=== PATIENT | female | born 1995 | race Caucasian/White ===

== ENCOUNTER 2020-02-14 19:08 | Inpatient (IN) | payer MEDICAID, SELFPAY ==
[2020-02-14] VITALS (16 sets, daily range): BP systolic 0–148; BP diastolic 0–81; PULSE 69–107; RESP 18; TEMP 36.9–37; BMI 27.1
[2020-02-14] MEDS: miSOPROStol 100 mcg tablet 25 MCG VAGINAL (20:48)
[2020-02-14 21:46] LABS: Basophils % 0.2 %; Eosinophils # 0.1 10^3/uL (0.0-0.8); Eosinophils % 0.7 %; Hemoglobin 10.1 g/dL (11.5-15.3); Lymphocytes # 1.8 10^3/uL (0.8-4.8); Lymphocytes % 15.9 %; Mean Corpuscular HGB Conc 30.6 g/dL (30.0-36.0); Mean Corpuscular Hemoglobin 26.4 pg (28.0-34.0); Mean Corpuscular Volume 86.4 fL (81-99); Mean Platelet Volume 13.1 fL (7.4-10.4); Monocytes # 0.7 10^3/uL (0.2-0.9); Monocytes % 6.2 %; Neutrophils # 8.64 10^3/uL (1.8-7.7); Neutrophils % 75.9 %; Nucleated Red Blood Cells % 0 %; Platelet Count 259 10^3/cmm (130-400); Red Blood Count 3.82 10^6/uL (4.1-5.3); Red Cell Distribution Width 15.1 % (12.1-15.1); White Blood Count 11.4 10^3/uL (4.0-10.0)
[2020-02-14 22:17] LABS: Slide Review Slide Review Perform
[2020-02-14] MEDS: morphine 4 mg/mL SDV 1 mL 8 MG IM (23:12)
[2020-02-14] MEDS: promethazine 25 mg/mL SDV 1 mL IM (23:14)
[2020-02-15] VITALS (148 sets, daily range): BP systolic 0–170; BP diastolic 0–81; PULSE 63–118; RESP 16–20; TEMP 36.5–37.6; O2SAT 96–98
[2020-02-15] MEDS: miSOPROStol 100 mcg tablet 25 MCG VAGINAL ×2 (01:30→05:31)
[2020-02-15] MEDS: fentaNYL 50 mcg/mL INJ 2mL IVP (07:36)
[2020-02-15] MEDS: lactated ringers 1,000 ML 999 ML IV (09:10)
[2020-02-15] MEDS: dextrose 5%-lactated ringers 1,000 ML 125 ML IV ×2 (10:04→17:40)
--- NOTE | 2020-02-15 10:35 | ANES.PREANE2 ---
Pre-Anesthetic Assessment Pre-Anesthetic Assessment: Height/Weight: Height 1.63 m Weight 71.668 kg Temp Pulse Resp BP Pulse Ox 97.7 F 102 H 20 H 101/70 97 02/15/20 09:00 02/15/20 10:31 02/15/20 09:00 02/15/20 10:31 02/15/20 09:57 Preop Diagnosis: IUP Familial anesthetic complications: non Social: Social History: Tobacco Exam: Pre-Anes Outpt Exam: alert, oriented x 3, clear to auscultation bilaterally and regular rate & rhythm Airway: Cervical ROM: WNL MP: 3 Dentition: Chipped Anesthetic Plan: ASA status: 2 Anesthesia: Regional (specify below) Risk of > 500 ml blood loss (7ml/kg in children): Yes, adequate IV access and fluids planned Meds/Allergies Current Medications: Current Medications Generic Name Dose Route Start Last Admin Trade Name Freq PRN Reason Stop Dose Admin Fentanyl 25 - 100 mcg 02/14/20 20:00 02/15/20 07:36 Sublimaze IVP 50 mcg Q1H PRN Administration SEVERE PAIN Dextrose/Lactated Ringer's 1,000 mls @ 125 m ls/hr 02/14/20 20:00 02/15/20 10:04 Dextrose 5%-Lact ated Ringers IV 125 mls/hr .Q8H PRN Administration per label comment s Lactated Ringer's 1,000 mls @ 999 m ls/hr 02/15/20 08:22 02/15/20 09:10 Lactated Ringers IV 999 mls/hr .Q1H1M PRN Administration ANESTHESIA Ropivacaine 200 mg in 100 mls @ 13 mls/hr 02/15/20 08:30 02/15/20 09:10 Naropin Premix EPIDURAL 13 mls/hr .Q7H42M RILEY Administration PFSH Anesthesia PFSH: Social History (Updated 02/14/20 @ 21:43 by Christine Colón RN) Smoking and tobacco status: current every day smoker Female Reproductive History: : 2 Data Anesthesia CBC & Chem 7: 02/14/20 20:30 Other Labs: Laboratory Results - last 48 hr 02/14/20 20:30 WBC 11.4 H RBC 3.82 L Hgb 10.1 L Hct 33.0 L MCV 86.4 MCH 26.4 L MCHC 30.6 RDW 15.1 Plt Count 259 MPV 13.1 H Neut % (Auto) 75.9 Lymph % (Auto) 15.9 [place] % (Auto) 6.2 Eos % (Auto) 0.7 Baso % (Auto) 0.2 Neut # (Auto) 8.64 H Lymph # (Auto) 1.8 [place] # (Auto) 0.7 Eos # (Auto) 0.1 Baso # (Auto) 0.0 Nucleated RBC % (auto) 0 Nucleated RBCs # 0.0 Cardiac Studies: No Data to Display
--- NOTE | 2020-02-15 10:36 | ANES.PROC ---
Anesthesia Procedures Procedure/Date: 02/15/20 Epidural: Time Out Performed: Yes Consents Signed: Procedure Consent Consent: requested by attending/covering physician, from patient, risks and benefits reviewed and patient agrees to proceed Lumbar Level: L3-L4 Epidural position: sitting Epidural procedure: sterile prep of area, 1% lidocaine to numb the area, 18 g needle, negative for paresthesia passed, neg for paresthesia, test dose given, 1.5% xylocaine 1:200k epi (3 cc), placed PCEA, no systemic response, sterile dressing applied, L.U.D. no apparent complications and 0.2% Ropiavacaine @ mls/hr (13)
[2020-02-15] MEDS: ondansetron 2 mg/ML SDV 2 mL 4 MG IVP (16:47)
[2020-02-15] MEDS: oxytocin 30 UNIT/500 ML BAG 999 UNIT IV (17:41)
[2020-02-15] MEDS: oxytocin 30 UNIT/500 ML BAG 4 UNIT IV (18:43)
--- NOTE | 2020-02-15 19:56 | PC.NURSE ---
1652 DR. BENOIT IN ROOM AND DID VE AND HAD PT PUSH AND OK'D FOR US TO START PUSHING. LEFT ROOM TO GET THINGS FOR DELIVERY AND HAD EMERGENCY IN ANOTHER ROOM SO PUSHING NOT STARTED UNTIL 1737. PT'S CONTRACTIONS NOT VERY STRONG AND PT NOT PUSHING WELL AND STRIP WAS LOOKING OK 1800 CHOOSE TO STOP PUSHING AND LET PT LABOR DOWN FOR AWHILE. NO PROGRESS WITH PUSHING AND CONTRACTIONS SPACED OUT AND NOT VERY STRONG. NOTIFIED DR. BENOIT WHO IS HERE ON FLOOR.
--- NOTE | 2020-02-15 22:14 | P.PCNOB_ITS ---
Delivery Note: Date of delivery: February 15, 2020 Pre-Delivery Course: The patient is an otherwise healthy 24-year-old 2 para 0-0-1-0 with an estimated stational age of 40 weeks who presented for induction due to postdates. Patient presented the evening prior to delivery. She received Cytotec 25 mcg per vagina x3. An amniotomy was performed. She also received Pitocin augmentation. She progressed to complete without difficulty. She pushed for about 1/2-hour but was found not to be making good progress, so would let her labor down for another hour before she began pushing again. Delivery: DELIVERY: The patient progressed to complete without difficulty. She delivered a female with a weight of 7 pounds 9 ounces with Apgars of 3, 9. The baby was delivered from the YURI position. After delivery of the head, I was unable to easily deliver the anterior shoulder. Nacho, and suprapubic pressure were performed. I performed a wood screw maneuver without success. I displaced to the posterior shoulder by pushing it. The baby was then completely delivered and placed on the mother's abdomen. The cord was then clamped and cut. There was no nuchal cord. There was no meconium. The placenta and 3 vessel cord were delivered intact shortly thereafter. The perineum and vaginal vault were carefully examined. No lacerations were noted. The baby did require initial resuscitation, but the baby and mother are now in stable condition. Blood loss was 150 mL A&P Assessment and plan (1) 40 weeks gestation of : Status: Acute (2) Vaginal delivery: Status: Acute (3) Shoulder dystocia during labor and delivery: Status: Acute Coding Level of Care Code Acute Booking Supervisor for Chg Fwd Diagnoses 40 weeks gestation of Z3A.40 Vaginal delivery O80 Shoulder dystocia during labor and delivery O66.0
[2020-02-16] VITALS (8 sets, daily range): BP systolic 0–123; BP diastolic 0–76; PULSE 64–87; RESP 16–18; TEMP 36.4–37.1; O2SAT 97–98
[2020-02-16] MEDS: HYDROcodone-acetaminophen 5-325 mg Tablet PO ×3 (03:13→15:45)
--- NOTE | 2020-02-16 07:40 | PM.OBGYPN ---
REGIONAL SALES REPRESENTATIVE Subjective Subjective: Interval history: The patient is doing well. Her pain is adequately controlled. Her bleeding has been within normal limits. She did not breast-feed much last night, but is willing to talk to the telecommunications specialist today to see if she can breast-feed more. Vitals/I&O/Wt Last Vital Signs Temp 97.6 F 02/16/20 05:45 Pulse 64 02/16/20 05:45 Resp 16 02/16/20 05:45 BP 119/66 02/16/20 05:45 Pulse Ox 97 02/16/20 05:45 02/15/20 02/16/20 02/16/20 22:59 06:59 14:59 Intake Total 518.717 / 360.497 4817.283 / 1700.000 Output Total 300 / 300 600 / 900 Balance 218.717 / 218.717 581.283 / 800.000 Weight last 48 hrs Weight 158 lb 0.014 oz Physical Exam Narrative: EXAM NARRATIVE: The patient is alert. She appears comfortable. Her heart has a regular rate and rhythm with no murmurs appreciated. Lungs are clear to auscultation bilaterally. Her fundus is firm and below the umbilicus. Urinary Catheter Management^: Sinha: Cath Placed During This Visit: yes, but has since been removed by the nurse Reason for Continuing Indwelling Catheter: Accurate Measurement of Urinary Output in Critically Ill Patients Urinary Catheter Date of Insertion: 02/15/20 Urinary Catheter Time of Insertion: 09:50 Date Urinary Catheter Removed: 02/15/20 Time Urinary Catheter Discontinued: 17:40 Data : 02/14/20 20:30 A&P Assessment and plan (1) Status post vaginal delivery: Patient appears to be doing very well. Anticipate routine care. I expect she will be discharged home tomorrow morning. Status: Acute (2) 40 weeks gestation of : Status: Acute (3) Shoulder dystocia during labor and delivery: Status: Acute Attestations Medical Necessity Statement*: Routine care Coding Level of Care Code Acute Corporate Legal Secretary for [employer] Maria Del Carmen Diagnoses Status post vaginal delivery 40 weeks gestation of Z3A.40 Shoulder dystocia during labor and delivery O66.0
[2020-02-16] MEDS: prenatal vitamin Capsule 1 CAP PO (08:36)
--- NOTE | 2020-02-16 10:01 | ANE.PACU2 ---
Inpatient post-anesthesia follow up: Airway intact: Yes Vital signs: Temperature 97.6 F Pulse Rate 64 Respiratory Rate 16 Blood Pressure 119/66 Pulse Oximetry 97 Oxygen Delivery Me thod Room Air Oxygen Flow Rate Fraction of Inspir ed Oxygen Hydration adequate: Yes Nausea and vomiting: No Pain level: 7 Mental status: Baseline Additional Comments: NO weakness, numbness, headaches, or signs of infection at neuraxial site
[2020-02-16 12:39] LABS: Hematocrit 35.9 % (37.0-47.0); Hemoglobin 10.6 g/dL (11.5-15.3); Mean Corpuscular HGB Conc 29.5 g/dL (30.0-36.0); Mean Corpuscular Hemoglobin 26.2 pg (28.0-34.0); Mean Corpuscular Volume 88.9 fL (81-99); Mean Platelet Volume 12.8 fL (7.4-10.4); Platelet Count 258 10^3/cmm (130-400); Red Blood Count 4.04 10^6/uL (4.1-5.3); Red Cell Distribution Width 15.2 % (12.1-15.1); White Blood Count 17.7 10^3/uL (4.0-10.0)
[2020-02-17 04:34] VITALS: BP 112/52; PULSE 70; RESP 16; TEMP 36.8; O2SAT 99
--- NOTE | 2020-02-17 07:28 | PM.OBGYDC ---
Discharge Providers RAIL SWITCHMAN Date of Admission: 02/14/20 19:08 Date of Discharge: 02/17/20 Attending Provider at Admission: Olaf Diaz MD Attending Provider at Discharge: Olaf Diaz MD Diagnoses at Discharge Discharge Diagnosis (1) Status post vaginal delivery: Status: Acute (2) 40 weeks gestation of : Status: Acute (3) Shoulder dystocia during labor and delivery: Status: Acute Reason for Visit Reason for Visit: iup Hospital Course Hospital Course: The patient presented to the hospital for induction due to postdates. She is given Cytotec 25 mcg per vagina x3. An amniotomy occurred. An epidural was placed. Pitocin augmentation was initiated. She progressed to complete. Shoulder dystocia occurred for about 3 minutes. Her course has been unremarkable. Her bleeding has been within normal limits her pain is been well controlled. She has bottle-fed her infant. Information Peripartum Data: Delivery Method: Vaginal Physical Exam Narrative: EXAM NARRATIVE: The patient is alert. She appears comfortable. Her heart has a regular rate and rhythm with no murmurs appreciated. Lungs are clear to auscultation bilaterally. Her fundus is firm and below the umbilicus. Urinary Catheter Management^: Sinha: Cath Placed During This Visit: yes, but has since been removed by the nurse Reason for Continuing Indwelling Catheter: Accurate Measurement of Urinary Output in Critically Ill Patients Urinary Catheter Date of Insertion: 02/15/20 Urinary Catheter Time of Insertion: 09:50 Date Urinary Catheter Removed: 02/15/20 Time Urinary Catheter Discontinued: 17:40 Discharge Data Data Completed and Pending: Labs from last 24 hours 02/16/20 11:00 WBC 17.7 H RBC 4.04 L Hgb 10.6 L Hct 35.9 L MCV 88.9 MCH 26.2 L MCHC 29.5 L RDW 15.2 H Plt Count 258 MPV 12.8 H Vitals: Last Vital Signs Temp 98.2 F 02/17/20 04:34 Pulse 70 02/17/20 04:34 Resp 16 02/17/20 04:34 BP 112/52 02/17/20 04:34 Pulse Ox 99 02/17/20 04:34 Discharge Plan Discharge Patient Disposition: Home Condition: Stable Prescriptions: New ibuprofen 800 mg Tablet 800 mg PO TID Qty: 30 RF: 0 -U 106.5-1 mg Capsule 1 cap PO DAILY Qty: 90 RF: 2 Discharge Orders: Discharge Order (Routine); Ordered 02/17/20 Ordered By: Olaf Diaz Referrals: Olaf Diaz MD [Physician] - 6 Weeks Discharge Diet: Usual diet Discharge Activity: Limit activity as instructed Discharge Attestations RAIL SWITCHMAN Time Spent in Discharge Care*: less than 30 min Coding Level of Care Code Acute Chemical Laboratory Technician for Chg Fwd Diagnoses Status post vaginal delivery 40 weeks gestation of Z3A.40 Shoulder dystocia during labor and delivery O66.0
[2020-02-17] MEDS: prenatal vitamin Capsule 1 CAP PO (08:55)
--- NOTE | 2020-02-17 10:30 | PC.NURSE ---
MMR Patient refused vaccine. Discussed the reason for needing the MMR vaccine with her Rubella non-immune, patient requested to not receive vaccine and can get it at a later time. This nurse discussed options of getting vaccine at health department or clinic as an outpatient.
[2020-02-17 12:32] VITALS: BP 114/71; PULSE 81; RESP 18; TEMP 36.5; O2SAT 97
== END 2020-02-17 11:30 | disposition home or self-care (01) | DRG 807 ==
PROVIDERS: Admitting Provider Family Medicine; Visit Provider Family Medicine
DX: O48.0 Post-term pregnancy (principal); Z37.0 Single live birth; Z3A.40 40 weeks gestation of pregnancy; O66.0 Obstructed labor due to shoulder dystocia
CPT/HCPCS: 12345; 36415; 51702; 59025; 59409; 85025; 85027; 96372; 96374; 96375; 99211; J2270; J2405; J2550; J2795; J3010

== ENCOUNTER → 2020-04-10 09:28 | Outpatient (BNVA) | payer MEDICAID, SELFPAY | PROVIDERS: Visit Provider Nurse Practitioner | DX: M25.532 Pain in left wrist (principal) | CPT/HCPCS: 72040; 73110 ==

== ENCOUNTER → 2020-04-11 16:11 | Outpatient (BNVA) | payer MEDICAID, SELFPAY | PROVIDERS: Visit Provider Nurse Practitioner | DX: M25.50 Pain in unspecified joint (principal) | CPT/HCPCS: 80053; 85025; 85651; 86140 ==

== ENCOUNTER → 2020-10-02 09:47 | Outpatient (BNVA) | payer MEDICAID, SELFPAY | PROVIDERS: Visit Provider Psychiatry & Neurology Neurology | DX: M25.539 Pain in unspecified wrist (principal); R20.2 Paresthesia of skin; M54.2 Cervicalgia; F17.210 Nicotine dependence, cigarettes, uncomplicated | CPT/HCPCS: 95886; 95912 ==

== ENCOUNTER 2021-02-05 06:21 | Emergency (ER) | payer MEDICAID, SELFPAY ==
[2021-02-05 06:28] VITALS: BP 112/70; PULSE 108; RESP 18; TEMP 36.7; O2SAT 99; BMI 23.6
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
[2021-02-05 06:50] VITALS: BP 118/64; PULSE 84; RESP 18; O2SAT 96
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
[2021-02-05 07:09] VITALS: BP 106/67; PULSE 92; RESP 18; O2SAT 98
[2021-02-05 07:26] LABS: Basophils % 0.3 %; Eosinophils # 0.1 10^3/uL (0.0-0.8); Eosinophils % 0.8 %; Hematocrit 39.6 % (37.0-47.0); Hemoglobin 12.6 g/dL (11.5-15.3); Lymphocytes # 2.2 10^3/uL (0.8-4.8); Lymphocytes % 16.7 %; Mean Corpuscular HGB Conc 31.8 g/dL (30.0-36.0); Mean Corpuscular Hemoglobin 30.4 pg (28.0-34.0); Mean Corpuscular Volume 95.7 fl (81-99); Mean Platelet Volume 12.1 fL (7.4-10.4); Monocytes # 0.8 10^3/uL (0.2-0.9); Monocytes % 6.2 %; Neutrophils # 9.98 10^3/uL (1.8-7.7); Neutrophils % 75.2 %; Nucleated Red Blood Cells % 0 %; Platelet Count 217 10^3/cmm (130-400); Red Blood Count 4.14 10^6/uL (4.1-5.3); Red Cell Distribution Width 13.9 % (12.1-15.1); White Blood Count 13.3 10^3/uL (4.0-10.0)
[2021-02-05 07:27] LABS: Add Urine Culture? No; Add Urine Microscopic? YES; Bacteria Urine 1+ /hpf; Bilirubin Urine Neg (Negative); Blood Urine Neg (Negative); Glucose Urine UA Norm (Normal); Ketones Urine Negative (Negative); Leukocyte Esterase Urine Negative (Negative); Mucus Urine TRACE /hpf; Nitrate Urine Negative (Negative); Protein Urine Neg (Negative); Specific Gravity, Urine 1.015 (1.005-1.030); Squamous Epithelial Cell Urine 25-40 /hpf (0-5); Urine Appearance Cloudy (CLEAR); Urine Color Yellow (Yellow); Urobilinogen Urine Norm (Negative); WBC Urine RARE /hpf (0-5); pH Urine 6.5 (5-7)
[2021-02-05 07:35] LABS: Chloride 105 mmol/L (98-107); Potassium 4.1 mmol/L (3.5-5.1); Sodium 137 mmol/L (136-145)
[2021-02-05 07:50] LABS: Alanine Aminotransferase 10 U/L (0-33); Alkaline Phosphatase 38 IU/L (35-105); Anion Gap 11.1 (5-19); Aspartate Amino Transferase 26 U/L (0-32); Blood Urea Nitrogen 4 mg/dL (6-20); Carbon Dioxide 25 mmol/L (22-29); Globulin 2.8 g/dL (1.3-4.6); Glomerular Filtration Rate 194.5 mL/min (90-130); Glucose 92 mg/dL (65-115); Osmolality Calculated 281 mOsm/kg (285-295); Total Bilirubin 0.2 mg/dL (0.15-1.2); Total Protein 6.2 g/dL (6.6-8.7)
[2021-02-05 07:56] VITALS: BP 115/54; PULSE 83; RESP 16; O2SAT 98
[2021-02-05 07:58] VITALS: BP 115/54; PULSE 84; RESP 16; O2SAT 99
[2021-02-05 08:00] LABS: Albumin Level 3.4 g/dL (3.5-5.2); Calcium 8.3 mg/dL (8.5-10.5)
== END 2021-02-05 07:58 | disposition home or self-care (01) ==
PROVIDERS: Emergency Provider Family Medicine; PCP Family Medicine
DX: Z04.1 Encounter for examination and observation following transport accident (principal); Z3A.20 20 weeks gestation of pregnancy; O99.332 Smoking (tobacco) complicating pregnancy, second trimester; F17.210 Nicotine dependence, cigarettes, uncomplicated; V89.2XXA Person injured in unspecified motor-vehicle accident, traffic, initial encounter
CPT/HCPCS: 76815; 80053; 81001; 85025; 99283

== ENCOUNTER 2021-05-08 16:27 | Inpatient (IN) | payer MEDICAID, SELFPAY ==
[2021-05-08] MEDS: oxytocin 30 UNIT/500 ML BAG 999 UNIT IV (16:22)
[2021-05-08] MEDS: lactated ringers 1,000 ML 999 ML IV (16:22)
[2021-05-08 16:40] VITALS: RESP 16; TEMP 36.7
--- NOTE | 2021-05-08 16:40 | PM.OPHPUD ---
Labor & Delivery H&P Update Date of Procedure: May 08, 2021 Date H&P Performed: 05/05/21 H&P update information: I have reviewed H&P completed within last 30 days and Changes to prior documentation as noted here (The patient has having delivered her baby in the ambulance outside hospital) Admission Diagnosis: Preop diagnosis: IUP Planned procedure: The patient already had a precipitous vaginal delivery Related Problem List Diagnoses (1) 36 weeks gestation of : (2) Precipitous delivery:
--- NOTE | 2021-05-08 16:49 | P.PCNOB_ITS ---
Delivery Note: Date of delivery: May 08, 2021 Pre-delivery diagnoses: 25-year-old 2 para 1-0-0-1 at 36 weeks estimated gestational age having contractions Procedure: Precipitous vaginal delivery in the ambulance Op report anesthesia: None Delivering Physician: No physician was present during delivery of the baby. Estimated blood loss (mL): 300 Pre-Delivery Course: The patient thought she lost her mucous plug earlier today. She then began having occasional contractions and cramps. Then quickly progressed to painful contractions, and when she was preparing to come to the hospital, she had to stop in the parking lot and called the ambulance. Shortly after the eminence arrived, she delivered her baby without difficulty. There is a question about shoulder dystocia. The baby did well after initially being somewhat stunned. Baby had Apgars of 4 and 8 according to the ambulance personnel. The baby and mother were then brought to the hospital for further evaluation and treatment. Delivery: Please see above note. The baby had a weight of 6 pounds 3 ounces. Apgars were 4 and 8. There was no report of a nuchal cord. I examined the mother's vaginal vault . No lacerations were noted. There was a fair amount of blood on the gurney which she was brought in. There was minimal bleeding during my examination. Post-Delivery Status: Good History History Other History: The patient had an unremarkable . Her labs were notable for having the blood type a positive. Her GBS status is unknown due to her gestational age. Her drug screen was notable for being positive for opiates. She is rubella nonimmune. Glucose screen was negative. The remainder of her labs are within normal limits A&P Assessment and plan (1) 36 weeks gestation of : I anticipate routine care. Status: Acute (2) Precipitous delivery: Status: Acute Coding Level of Care Code Acute Investigative Assistant for Chg Fwd Diagnoses 36 weeks gestation of Z3A.36 Precipitous delivery O62.3
[2021-05-08 17:01] VITALS: BMI 25.7
[2021-05-08 17:11] LABS: Basophils # 0.1 10^3/uL (0.0-0.1); Basophils % 0.3 %; Eosinophils % 0.1 %; Hematocrit 31.7 % (37.0-47.0); Hemoglobin 9.7 g/dL (11.5-15.3); Lymphocytes # 1.3 10^3/uL (0.8-4.8); Lymphocytes % 7.6 %; Mean Corpuscular HGB Conc 30.6 g/dL (30.0-36.0); Mean Corpuscular Hemoglobin 25.7 pg (28.0-34.0); Mean Corpuscular Volume 83.9 fl (81-99); Mean Platelet Volume 12.1 fL (7.4-10.4); Monocytes # 1.1 10^3/uL (0.2-0.9); Monocytes % 6.2 %; Neutrophils # 14.84 10^3/uL (1.8-7.7); Neutrophils % 85.1 %; Nucleated Red Blood Cells % 0 %; Platelet Count 243 10^3/cmm (130-400); Red Blood Count 3.78 10^6/uL (4.1-5.3); Red Cell Distribution Width 14.1 % (12.1-15.1); White Blood Count 17.5 10^3/uL (4.0-10.0)
--- NOTE | 2021-05-08 18:34 | PC.NURSE ---
Delivery Summary Mother reports she lost mucous plug this morning but was not having any pain. Started having pain around 3pm and decided to come to hospital. Dropped her other child off with grandparents and then reports pain was strong so significant other called the ambulance. Ambulance arrived and put mom in ambulance and mother reports feeling pressure and baby was . Baby was delivered in the ambulance by EMS @1528. EMS reports it was a difficult delivery and the shoulders were stuck for a moment but unsure of time frame. EMS also reports some resuscitative measures were performed on baby and baby received oxygen for a period of time but issues resolved quickly and apgars were 4 and 8. EMS also reports a nuchal cord x1. Placenta delivered at 1540. EMS arrived to the hospital at 1617 with mom and baby. Baby was in mom's arms but not skin to skin. Baby was taken to warmer and examined by Dr. Ramesh. Accucheck obtained and noted to be 68. Placenta was removed from mom's lap and placed in sterile container and cord blood was obtained. Dr. Diaz to room shortly after and also examined baby and mom. Baby was returned skin to skin with mom.
[2021-05-08 18:42] VITALS: BP 116/82; PULSE 116; RESP 16; TEMP 36.8; O2SAT 99
[2021-05-08] MEDS: docusate sodium 100 mg Capsule PO (18:42)
[2021-05-08 19:05] LABS: Amphetamines Screen Urine Positive (Negative); Barbiturates Screen Urine Negative (Negative); Benzodiazepines Screen Urine Negative (Negative); Cocaine Screen Urine Negative (Negative); Opiate Screen Urine Negative (Negative); PCP Screen Urine Negative (Negative); THC Screen Urine Negative (Negative)
[2021-05-08 20:05] VITALS: BP 129/75; PULSE 113; RESP 17
[2021-05-08] MEDS: benzocaine-menthol 78 gm Canister 1 SPRAY TOPICAL (20:51)
[2021-05-08] MEDS: ibuprofen 800 mg tablet PO (20:52)
[2021-05-08 21:36] VITALS: BP 127/69; PULSE 102; RESP 15
[2021-05-09 03:35] VITALS: BP 104/56; PULSE 78; RESP 16; TEMP 36.5
[2021-05-09 03:47] LABS: Hematocrit 28.5 % (37.0-47.0); Hemoglobin 8.8 g/dL (11.5-15.3); Mean Corpuscular HGB Conc 30.9 g/dL (30.0-36.0); Mean Corpuscular Hemoglobin 25.7 pg (28.0-34.0); Mean Corpuscular Volume 83.3 fl (81-99); Mean Platelet Volume 11.8 fL (7.4-10.4); Platelet Count 214 10^3/cmm (130-400); Red Blood Count 3.42 10^6/uL (4.1-5.3); Red Cell Distribution Width 14.4 % (12.1-15.1); White Blood Count 12.2 10^3/uL (4.0-10.0)
[2021-05-09 08:00] VITALS: BP 113/65; PULSE 75; RESP 17
--- NOTE | 2021-05-09 08:01 | PC.NURSE ---
Note This mom is hoping to breastfeed. Baby is level II care in the nursery at this time. Discussed hand expression with mom and she reports knowing how to express. Encouraged her to express 8 times in 24 hours for at least 10 to 15 min per breast. Provided medicine cup containers to start collecting in. She may have someone bring her breastpump.
[2021-05-09] MEDS: ibuprofen 800 mg tablet PO ×2 (09:52→14:50)
[2021-05-09] MEDS: nicotine 21 mg Patch 1 PATCH TRANSDERMA (09:52)
[2021-05-09] MEDS: prenatal vitamin Capsule 1 CAP PO (09:52)
[2021-05-09] MEDS: docusate sodium 100 mg Capsule PO (09:52)
[2021-05-09 10:30] VITALS: BP 105/74; PULSE 70; RESP 16; TEMP 36.7
--- NOTE | 2021-05-09 14:03 | PM.OBGYDC ---
Discharge Providers PUBLIC ADDRESS TECHNICIAN Date of Admission: 05/08/21 16:27 Date of Discharge: 05/21/21 Attending Provider at Admission: Olaf Diaz MD Attending Provider at Discharge: Olaf Diaz MD Primary Care Provider: Olaf Diaz MD Diagnoses at Discharge Discharge Diagnosis (1) 36 weeks gestation of : Status: Resolved (2) Precipitous delivery: Status: Resolved (3) Abnormal drug screen: Status: Acute Reason for Visit Reason for Visit: Home Delivery Hospital Course Hospital Course The patient presented to the hospital status post spontaneous vaginal delivery in the ambulance about 1/2-hour prior to arrival to hospital. The delivery was unremarkable. After arrival to hospital, a drug screen was performed which found the patient to be positive for methamphetamines. DFS was contacted. As result of their evaluation, they elected to place the infant in another home for the time being. The mother was very cooperative. Her hospital stay was completely unremarkable otherwise. Physical Exam Narrative: EXAM NARRATIVE: The patient is alert. She appears comfortable. Her heart has a regular rate and rhythm with no murmurs appreciated. Lungs are clear to auscultation bilaterally. Her fundus is firm and below the umbilicus. History History Other History: The patient had an unremarkable . Her labs were notable for having the blood type a positive. Her GBS status is unknown due to her gestational age. Her drug screen was notable for being positive for opiates. She is rubella nonimmune. Glucose screen was negative. The remainder of her labs are within normal limits Discharge Data Data Completed and Pending: Labs from last 24 hours 05/09/21 05/08/21 05/08/21 03:40 17:44 16:55 WBC 12.2 H 17.5 H RBC 3.42 L 3.78 L Hgb 8.8 L 9.7 L Hct 28.5 L 31.7 L MCV 83.3 83.9 MCH 25.7 L 25.7 L MCHC 30.9 30.6 RDW 14.4 14.1 Plt Count 214 243 MPV 11.8 H 12.1 H Neut % (Auto) 85.1 Lymph % (Auto) 7.6 [place] % (Auto) 6.2 Eos % (Auto) 0.1 Baso % (Auto) 0.3 Neut # (Auto) 14.84 H Lymph # (Auto) 1.3 [place] # (Auto) 1.1 H Eos # (Auto) 0.0 Baso # (Auto) 0.1 Nucleated RBC % (a uto) 0 Nucleated RBCs # 0.0 Urine Opiates Scre en Negative Ur Barbiturates Sc reen Negative Ur Phencyclidine S crn Negative Ur Amphetamines Sc reen Positive H U Benzodiazepines Scrn Negative Urine Cocaine Scre en Negative U Marijuana (THC) Screen Negative Vitals: Last Vital Signs Temp 98.0 F 05/09/21 10:30 Pulse 70 05/09/21 10:30 Resp 16 05/09/21 10:30 BP 105/74 05/09/21 10:30 Pulse Ox 99 05/08/21 18:42 Discharge Plan Discharge Patient Disposition: Home Condition: Stable Prescriptions: New ibuprofen 800 mg Tablet 800 mg PO TID Qty: 45 RF: 0 Continued -U 106.5-1 mg Capsule 1 cap PO DAILY Qty: 90 RF: 2 Discontinued cephalexin 500 mg capsule 500 mg PO TID Qty: 30 RF: 0 ibuprofen 800 mg Tablet 800 mg PO TID Qty: 30 RF: 0 Discharge Orders: Discharge Order (Routine); Ordered 05/09/21 Ordered By: Olaf Diaz Referrals: Olaf Diaz MD [Primary Care Provider] - 05/27/21 11:00 am () Discharge Diet: Usual diet Discharge Activity: Limit activity as instructed Patient Instructions: Opioid Safety (GEN), Preeclampsia and Eclampsia After Delivery (GEN), OB Discharge Report, OB Food/Drug Interaction Guide, OB Home Care Instructions, OB Care at Home, Opioid Safety, OB Home Care, OB Proud Parent Packet, OB Vaginal Deliveries Discharge Attestations PUBLIC ADDRESS TECHNICIAN Time Spent in Discharge Care*: greater than 30 min Specific Discharge Activities: Specific discharge activities: educating patient and educating and/or supporting family/caregiver Coding Level of Care Code Acute Communication Equipment Repairer for Chg Fwd Diagnoses 36 weeks gestation of Z3A.36 Precipitous delivery O62.3 Abnormal drug screen R89.2
[2021-05-09] MEDS: measles,mumps,rubella pf Vial (w/diluent) 0.5 ML SUBCUT (14:48)
[2021-05-09] MEDS: medroxyprogesterone 150 mg/ml SDV 1 mL IM (14:50)
[2021-05-09 15:00] VITALS: BP 128/74; PULSE 70; RESP 17
[2021-05-09 15:10] VITALS: BP 128/74; PULSE 70; RESP 17
== END 2021-05-09 15:15 | disposition home or self-care (01) | DRG 776 ==
LOC: OPOB 16:28 → OBGYN 16:28
PROVIDERS: Admitting Provider Family Medicine; PCP Family Medicine; Visit Provider Family Medicine
DX: Z39.0 Encounter for care and examination of mother immediately after delivery (principal); O99.325 Drug use complicating the puerperium; Z3A.36 36 weeks gestation of pregnancy; Z37.0 Single live birth; F15.90 Other stimulant use, unspecified, uncomplicated
CPT/HCPCS: 12345; 36415; 80306; 85025; 85027; 90707; 96372; J1050

== ENCOUNTER 2022-07-19 15:30 | Emergency (ER) | payer MEDICAID, SELFPAY ==
[2022-07-19 15:31] VITALS: BP 141/90; PULSE 83; RESP 13; TEMP 36.6; O2SAT 99
--- NOTE | 2022-07-19 16:14 | ED_ITS ---
HPI - Female Genitourinary General: Chief complaint: Vaginal Bleeding Stated complaint: needs iud checked Time Seen by Provider: 07/19/22 15:41 History of Present Illness: This patient is a 26 year old presenting with concerns that her IUD is coming out. She says that she has had it for about a year and she hasn't had a period since then. She has had some vaginal bleeding after sex and passed some small clots today. She says that her partner says that he can feel the IUD now whereas he hasn't been able to before. She also notes that her hormones have been crazy for the past few months. No urinary symptoms. No abdominal pain but some pelvic cramping. No fever, no nausea or vo miting. No change in BM. She has had a prior D and C and several pregnancies. PFSH ED PFSH: Medical History Environmental and seasonal allergies Surgical History History of dilatation and curettage 2019 Family History Other Cancer Diabetes Hypertension Denies family history of Anesthesia complication Bleeding disorder Stroke Social History Smoking and tobacco status: current every day smoker Second hand smoke exposure: No Smoking risk assessment/counseling performed?: Yes Alcohol intake: never Desire information about alcohol rehabilitation?: No Counseling given: No Desire information about substance/drug rehabilitation?: No Counseling given: No Adopted: No Caregiver/support person: No Lives independently: Yes Household members: significant other Housing: House Marital status: Single Number of children: 1 service: No Current occupational status: unemployed Pets and animals: Yes Pets & animals: cat(s) and dog(s) History of recent travel: No Current gender identity: Female Female Reproductive History: Para: 1 Spontaneous abortions: Yes Physical Exam Const: COMMON NORMALS: no acute distress, patient oriented x3, no limitations and alert GENERAL APPEARANCE: cooperative and comfortable HENMT: HEAD & SCALP: normal to inspection FACE & SINUS: normal facial exam Eye: GENERAL EYE: appearance normal, both eyes and all related structures Neck/C-Spine: COMMON NORMALS: supple, no meningeal signs and no JVD Chest: COMMONS NORMALS: normal inspection of the chest Resp: COMMON NORMALS: normal respiratory effort, No use of accessory muscles and clear to auscultation bilaterally AUSCULTATION: clear to auscultation bi laterally Cardio: COMMON NORMALS: no JVD, regular rate, regular rhythm and No murmurs present (Cardio) RATE: regular rate RHYTHM: regular rhythm GI: COMMON NORMALS: Normal to inspection, nondistended, normoactive bowel sounds present, Soft to palpation and non-tender INSPECTION: Yes normal to inspection AUSCULTATION: Yes normoactive bowel sounds PALPATION: Yes Soft to palpation Back/Pelvis: COMMON NORMALS: thoracic and lumbar spine normal to inspection Extremity: COMMON NORMALS: normal to inspection Neuro: COMMON NORMALS: patient oriented x3, moves all extremities, no focal motor deficits and no sensory deficits noted SENSORIUM/ORIENTATION: Yes alert MENINGEAL SIGNS: Yes no meningeal signs Psych: COMMON NORMALS: mental status grossly normal, cooperative and normal affect Skin: COMMON NORMALS: no rashes or lesions noted and turgor normal GENERAL SKIN EXAM: no rashes or lesions noted and turgor normal Course Vital Signs: Vital signs: Vital Signs Temperature 97.8 F 07/19/22 15:31 Pulse Rate 83 07/19/22 15:31 Respiratory Rate 13 07/19/22 15:31 Blood Pressure 141/90 07/19/22 15:31 Pulse Oximetry 99 07/19/22 15:31 Oxygen Delivery Me thod 07/19/22 15:31 MDM - Female Medical Decision Making Pelvic exam and possibly US to evaluate position of the IUD. Need to rule out . UPT neg, pelvic exam neg. US pending. Turn over to Dr. Hart. Lab Data 07/19/22 16:07 07/19/22 16:07 Laboratory Results WBC 10.1 10^3/uL (4.0-10.0) H 07/19/22 16:07 RBC 5.21 10^6/uL (4.1-5.3) 07/19/22 16:07 Hgb 15.6 g/dL (11.5-15.3) H 07/19/22 16:07 Hct 48.9 % (37.0-47.0) H 07/19/22 16:07 MCV 93.9 fl (81-99) 07/19/22 16:07 MCH 29.9 pg (28.0-34.0) 07/19/22 16:07 MCHC 31.9 g/dL (30.0-36.0) 07/19/22 16:07 RDW 13.4 % (12.1-15.1) 07/19/22 16:07 Plt Count 249 10^3/cmm (130-400) 07/19/22 16:07 MPV 11.9 fL (7.4-10.4) H 07/19/22 16:07 Neut % (Auto) 66.8 % 07/19/22 16:07 Lymph % (Auto) 26.2 % 07/19/22 16:07 [place] % (Auto) 5.4 % 07/19/22 16:07 Eos % (Auto) 1.1 % 07/19/22 16:07 Baso % (Auto) 0.3 % 07/19/22 16:07 Neut # (Auto) 6.75 10^3/uL (1.8-7.7) 07/19/22 16:07 Lymph # (Auto) 2.6 10^3/uL (0.8-4.8) 07/19/22 16:07 [place] # (Auto) 0.5 10^3/uL (0.2-0.9) 07/19/22 16:07 Eos # (Auto) 0.1 10^3/uL (0.0-0.8) 07/19/22 16:07 Baso # (Auto) 0.0 10^3/uL (0.0-0.1) 07/19/22 16:07 Nucleated RBC % (auto) 0 % 07/19/22 16:07 Nucleated RBCs # 0.0 /100WBC 07/19/22 16:07 Sodium 133 mmol/L (136-145) L 07/19/22 16:07 Potassium 3.6 mmol/L (3.5-5.1) 07/19/22 16:07 Chloride 96 mmol/L (98-107) L 07/19/22 16:07 Carbon Dioxide 25 mmol/L (22-29) 07/19/22 16:07 Anion Gap 15.6 (5-19) 07/19/22 16:07 BUN 9 mg/dL (6-20) 07/19/22 16:07 Creatinine 0.5 mg/dL (0.5-0.9) 07/19/22 16:07 GFR Calculation 149.1 mL/min (90-130) H 07/19/22 16:07 Glucose 90 mg/dL (65-115) 07/19/22 16:07 Calculated Osmolality 274 mOsm/kg (285-295) L 07/19/22 16:07 Calcium 9.4 mg/dL (8.5-10.5) 07/19/22 16:07 Total Bilirubin 0.5 mg/dL (0.15-1.2) 07/19/22 16:07 AST 14 U/L (0-32) 07/19/22 16:07 ALT 14 U/L (0-33) 07/19/22 16:07 Alkaline Phosphatase 23 U/L (35-105) L 07/19/22 16:07 Total Protein 7.6 g/dL (6.6-8.7) 07/19/22 16:07 Albumin 4.7 g/dL (3.5-5.2) 07/19/22 16:07 Globulin 2.9 g/dL (1.3-4.6) 07/19/22 16:07 HCG, Qual Negative (Negative) 07/19/22 16:07 Discharge Plan Discharge Condition: Stable Prescriptions: No Action -U 106.5-1 mg Capsule 1 cap PO DAILY Qty: 90 2RF ibuprofen 800 mg Tablet 800 mg PO TID Qty: 45 0RF Referrals: Olaf Diaz MD [Primary Care Provider] - Coding Level of Care Code ED Mechanical Systems Design Engineer for Chg Fwd Exam Comprehensive
[2022-07-19 16:18] LABS: Basophils % 0.3 %; Eosinophils # 0.1 10^3/uL (0.0-0.8); Eosinophils % 1.1 %; Hematocrit 48.9 % (37.0-47.0); Hemoglobin 15.6 g/dL (11.5-15.3); Lymphocytes # 2.6 10^3/uL (0.8-4.8); Lymphocytes % 26.2 %; Mean Corpuscular HGB Conc 31.9 g/dL (30.0-36.0); Mean Corpuscular Hemoglobin 29.9 pg (28.0-34.0); Mean Corpuscular Volume 93.9 fl (81-99); Mean Platelet Volume 11.9 fL (7.4-10.4); Monocytes # 0.5 10^3/uL (0.2-0.9); Monocytes % 5.4 %; Neutrophils # 6.75 10^3/uL (1.8-7.7); Neutrophils % 66.8 %; Nucleated Red Blood Cells % 0 %; Platelet Count 249 10^3/cmm (130-400); Red Blood Count 5.21 10^6/uL (4.1-5.3); Red Cell Distribution Width 13.4 % (12.1-15.1); White Blood Count 10.1 10^3/uL (4.0-10.0)
[2022-07-19 16:35] LABS: HCG, Serum Qual Negative (Negative)
[2022-07-19 16:36] VITALS: BP 114/68; PULSE 71; RESP 17; O2SAT 96
[2022-07-19 16:39] LABS: Alanine Aminotransferase 14 U/L (0-33); Albumin Level 4.7 g/dL (3.5-5.2); Alkaline Phosphatase 23 U/L (35-105); Anion Gap 15.6 (5-19); Aspartate Amino Transferase 14 U/L (0-32); Blood Urea Nitrogen 9 mg/dL (6-20); Calcium 9.4 mg/dL (8.5-10.5); Carbon Dioxide 25 mmol/L (22-29); Chloride 96 mmol/L (98-107); Creatinine Clr Calc Pharmacy 151.8283; Globulin 2.9 g/dL (1.3-4.6); Glomerular Filtration Rate 149.1 mL/min (90-130); Glucose 90 mg/dL (65-115); Osmolality Calculated 274 mOsm/kg (285-295); Potassium 3.6 mmol/L (3.5-5.1); Sodium 133 mmol/L (136-145); Total Bilirubin 0.5 mg/dL (0.15-1.2); Total Protein 7.6 g/dL (6.6-8.7)
--- NOTE | 2022-07-19 17:07 | USR_ITS ---
PROCEDURE INFORMATION: Exam: US Pelvis Complete, Transabdominal and US Pelvis, Transvaginal Exam date and time: 07/19/2022 5:43 PM Age: 26 years old Clinical indication: Menstruation abnormalities; Excessive menstruation; Other: With iud; Pelvic pain; Additional info: Concern for iud migration, vag bleeding, pain TECHNIQUE: Imaging protocol: Real-time complete transabdominal and transvaginal pelvic ultrasound with image documentation. Transvaginal imaging was used for better evaluation of the endometrium, adnexa, and/or cervix. COMPARISON: US OB >= 14 weeks fetus [id number] 02/19/2021 9:46 AM FINDINGS: Uterus: IUD present in the superior uterine fundus. Portions of the superior struts of the IUD appear to extend beyond the borders of the endometrial stripe (for example series 1, image 42 frame 80). The IUD appears to closely approximate the superior fundus for example on series 1, image 42 frame 100. The endometrial stripe thickness is normal. Right ovary/adnexa: Ovary is normal. No mass. Normal ovarian blood flow. Left ovary/adnexa: Ovary is normal. No mass. Normal ovarian blood flow. Intraperitoneal space: No intraperitoneal fluid. Urinary bladder: Normal. US/US pelv w/transvag [id number] IMPRESSION: IUD is present in the superior fundus. Portions of the IUD appear imbedded in the myometrium. IUD closely approximates the superior contour of the fundus without definite uterine perforation. Recommend clinical correlation.
[2022-07-19 17:36] VITALS: PULSE 80; RESP 15; O2SAT 97
[2022-07-19 18:23] VITALS: BP 138/79; PULSE 73; RESP 17; O2SAT 94
[2022-07-19 18:30] VITALS: BP 144/83; PULSE 66; RESP 15; O2SAT 98
[2022-07-19 19:14] VITALS: BP 124/80; PULSE 83; RESP 16; O2SAT 97
== END 2022-07-19 19:15 | disposition home or self-care (01) ==
PROVIDERS: Emergency Medicine; Emergency Provider Emergency Medicine; PCP Family Medicine
DX: T83.89XA Other specified complication of genitourinary prosthetic devices, implants and grafts, initial encounter (principal); F17.210 Nicotine dependence, cigarettes, uncomplicated; Y82.8 Other medical devices associated with adverse incidents
CPT/HCPCS: 36415; 76830; 76856; 80053; 84703; 85025; 87210; 87491; 87591; 87661; 99284; E0352